=== PATIENT | female | born 1985 | race Caucasian/White ===

== ENCOUNTER 2017-02-24 18:05 | Emergency (ER) | payer OTHER ==
[2017-02-24 18:32] VITALS: BP 116/70
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
== END 2017-02-24 19:27 | disposition home or self-care (01) ==
LOC: UCEAST 18:05
DX: S39.012A Strain of muscle, fascia and tendon of lower back, initial encounter (principal); V43.62XA Car passenger injured in collision with other type car in traffic accident, initial encounter; Y92.410 Unspecified street and highway as the place of occurrence of the external cause; Z88.8 Allergy status to other drugs, medicaments and biological substances
CPT/HCPCS: 99202; G0463

== ENCOUNTER 2017-09-10 20:09 | Emergency (ER) | payer OTHER ==
[2017-09-10 20:52] VITALS: BP 128/74
--- NOTE | 2017-09-10 21:42 | RAD ---
HISTORY: Right foot and ankle injury, pain COMPARISONS: None VIEWS: 6, Frontal, lateral, and oblique views of the right foot and right ankle FINDINGS: BONE DENSITY: Normal. BONES: There is no displaced fracture. JOINTS: There is no arthropathy. ALIGNMENT: There is no dislocation. SOFT TISSUES: Unremarkable. OTHER FINDINGS: None. IMPRESSION: NO ACUTE OSSEOUS INJURY TO THE RIGHT FOOT OR RIGHT ANKLE. IF SYMPTOMS PERSIST, RECOMMEND REPEAT IMAGING.
--- NOTE | 2017-09-10 22:00 | UC ---
Verónica Kilgore Emily, scribed for Omar De La Paz MD on 09/10/17 at 2157 . Lower Extremity/Ankle HPI - HPI Summary HPI Summary: This patient is a 32 year old F presenting to urgent care with a chief complaint of R ankle pain radiating to foot status post twisting her ankle when standing that occurred at 1800 today. The patient rates the pain 5/10 in severity. Symptoms aggravated by movement. Symptoms alleviated by nothing. Patient denies numbness. Medications reviewed. Allergies reviewed. - History of Current Complaint Chief Complaint: UCLowerExtremity Stated Complaint: FOOT INJURY Time Seen by Provider: 09/10/17 21:48 Hx Obtained From: Patient Hx Last Menstrual Period: 02/10/17 ?: No Onset/Duration: Sudden Onset, Lasting Hours, Still Present Severity Initially: Moderate Severity Currently: Moderate Pain Intensity: 5 Pain Scale Used: 0-10 Numeric Aggravating Factor(s): Ambulation Alleviating Factor(s): Nothing Able to Bear Weight: Yes - Allergies/Home Medications Allergies/Adverse Reactions: Allergies Allergy/AdvReac Type Severity Reaction Status Date / Time No Known Allergies Allergy Verified 09/10/17 20:52 PMH/Surg Hx/FS Hx/Imm Hx Previously Healthy: Yes Endocrine History: Other Other Endocrine History: Negative thyroid disease Respiratory History: Other Other Respiratory History: Negative asthma - Surgical History Surgical History: None - Family History Known Family History: Positive: Cardiac Disease Negative: Diabetes - Social History Occupation: Unemployed Lives: With Family Alcohol Use: Weekly Substance Use Type: None Smoking Status (MU): Never Smoked Tobacco Review of Systems Musculoskeletal: Other: - Positive R ankle pain Neurological: Other - Negative numbness All Other Systems Reviewed And Are Negative: Yes Physical Exam - Summary Physical Exam Summary: General: well-appearing, no pain distress Skin: warm, color reflects adequate perfusion, dry Head: normal Eyes: EOMI, ROMEO ENT: normal Neck: supple, nontender Respiratory: CTA, breath sounds present Cardiovascular: RRR Abdomen: soft, nontender Bowel: present Musculoskeletal: Tender on the anterior aspect of the right ankle and mid foot. Pain with ROM. strength/ROM intact Neurological: sensory/motor intact, A&O x3 Psychological: affect/mood appropriate Triage Information Reviewed: Yes Vital Signs: Initial Vital Signs Temp 99.0 F 09/10/17 20:50 Pulse 75 09/10/17 20:50 Resp 18 05/30/18 20:50 BP 128/74 09/10/17 20:50 Pulse Ox 98 09/10/17 20:50 Vital Signs Reviewed: Yes Diagnostics - Radiology Ankle XR Radiology Interpretation Completed By: Radiologist - Ankle XR reveals, per radiologist, no acute osseous injury to the right foot or right ankle. If symptoms persist, recommend repeat imaging. Physician has reviewed this radiology report. Foot XR Radiology Interpretation Completed By: Radiologist - Foot XR reveals, per radiologist, no acute osseous injury to the right foot or right ankle. If symptoms persist, recommend repeat imaging. Physician has reviewed this radiology report. Lower Extremity Course/Dx - Course Course Of Treatment: DISCUSSED X-RAY RESULTS WITH THE PATIENT. - Differential Dx/Diagnosis Provider Diagnoses: RIGHT ANKLE SPRAIN Discharge - Sign-Out/Discharge Documenting (check all that apply): Discharge/Admit/Transfer - Discharge Plan Condition: Stable Disposition: HOME Patient Education Materials: Ankle Sprain (ED), Crutch Instructions (ED) [place]: [facility] [place] [Outside] [facility] [Provider Group] Additional Instructions: FOLLOW UP WITH YOUR PRIMARY CARE DOCTOR OR [facility] IF NOT COMPLETELY IMPROVED. GET RECHECKED FOR ANY WORSENING OF YOUR CONDITION OR QUESTIONS OR CONCERNS. - Billing Disposition and Condition Condition: STABLE Disposition: HOME The documentation as recorded by the Verónica torres Emily accurately reflects the service I personally performed and the decisions made by me, Omar De La Paz MD.
== END 2017-09-10 22:23 | disposition home or self-care (01) ==
LOC: UCEAST 20:09
DX: S93.401A Sprain of unspecified ligament of right ankle, initial encounter (principal); X50.0XXA Overexertion from strenuous movement or load, initial encounter; Y93.9 Activity, unspecified; Y92.9 Unspecified place or not applicable
CPT/HCPCS: 99213; G0463